=== PATIENT | female | born 1970 | race Caucasian/White ===

== ENCOUNTER 2022-03-10 07:23 | Day surgery (SDC) | payer OTHER ==
[~2022-03-10] VITALS: Ht 160 cm; Wt 79.9 kg
[~2022-03-10 07:23] MED LIST: AMPDEX10CR PO; BUPR150ER PO; HYDMOR2 PO; Inderal40 MG PO; LEVSOD100 PO; LEVSOD75 PO; METF500; OMEP20ER; ONDA4ODT MM; OXYB5 PO; PROM25 PO; Prinivil10 MG; SERT100; SUMA25 PO; THYR60; TRAZ100
[2022-03-10] MEDS ORDERED: PROG100 (07:41)
--- NOTE | 2022-03-10 08:17 | NUR ---
03/10/22 0817 GRACIELA PHELPS THREE ATTEMPTS AT IV. FIRST ATTEMPT AT IV IN RIGHT HAND BY BRIE UNABLE TO ADVANCE. SECOND ATTEMPT IN RIGHT FOREARM BY BRIE INFILTRATED. THIRD ATTEMPT BY RN IN LEFT FOREARM SUCCESSFUL.
== END 2022-03-10 09:30 | disposition home or self-care (01) ==
LOC: ORSCSDS 07:23
PROVIDERS: Student in an Organized Health Care Education/Training Program
PROC: 0DB98ZX Excision of Duodenum, Via Natural or Artificial Opening Endoscopic, Diagnostic (ICD-10-PCS; principal; 2022-03-10 08:45)
PROC: 0DBL8ZX Excision of Transverse Colon, Via Natural or Artificial Opening Endoscopic, Diagnostic (ICD-10-PCS; principal; 2022-03-10 08:45)
PROC: 0DB58ZX Excision of Esophagus, Via Natural or Artificial Opening Endoscopic, Diagnostic (ICD-10-PCS; principal; 2022-03-10 08:45)
PROC: 0DBE8ZX Excision of Large Intestine, Via Natural or Artificial Opening Endoscopic, Diagnostic (ICD-10-PCS; principal; 2022-03-10 08:45)
PROC: 0DB68ZX Excision of Stomach, Via Natural or Artificial Opening Endoscopic, Diagnostic (ICD-10-PCS; principal; 2022-03-10 08:45)
DX: R10.13 Epigastric pain (principal); K21.9 Gastro-esophageal reflux disease without esophagitis; K52.9 Noninfective gastroenteritis and colitis, unspecified; D12.3 Benign neoplasm of transverse colon; Q45.8 Other specified congenital malformations of digestive system; K29.70 Gastritis, unspecified, without bleeding; I10 Essential (primary) hypertension; E03.9 Hypothyroidism, unspecified; Z79.899 Other long term (current) drug therapy
CPT/HCPCS: 82947; 88305; 88342; J2704; J7120

== ENCOUNTER → 2024-10-29 | Outpatient (CLI) | payer OTHER ==
[~2024-10-29] MED LIST changes: +PROG100
[2024-10-30 15:32] LABS: C DIFFICILE DNA NEGATIVE (Negative)
[2024-10-31 19:54] LABS: LACTOFERRIN,FECAL BY ELISA Negative (Negative)
[2024-11-01 18:06] LABS: CALPROTECTIN,FECAL 101 ug/g (<=49)
[2024-11-06 23:29] LABS: OVA AND PARASITE,FECAL INTERP Negative (Negative)
== END | disposition home or self-care (01) ==
LOC: LAB SHORT 20:00 → LAB 20:00 → LAB FUT 10-08 09:20
PROVIDERS: Student in an Organized Health Care Education/Training Program
DX: R10.32 Left lower quadrant pain (principal); R13.10 Dysphagia, unspecified; R19.4 Change in bowel habit; R19.7 Diarrhea, unspecified
CPT/HCPCS: 83630; 83993; 87177; 87209; 87338; 87493